=== PATIENT | female | born 1990 | race Caucasian/White ===

== ENCOUNTER 2019-01-29 15:35 | Emergency (ER) | payer OTHER ==
[~2019-01-29] VITALS: Ht 160 cm; Wt 65.9 kg
[2019-01-29 15:41] VITALS: TEMP 98.7
[2019-01-29] MEDS ORDERED: MULTIPLE VITAMI1 TA5 PO (15:43)
[2019-01-29 16:48] LABS: BASO % 0.3 % (0.0-2.0); EOS # 0.1 (0.0-0.7); EOS % 0.6 % (0-4.0); GRAN % 80.9 % (42.2-75.2); HEMOGLOBIN 11.7 g/dl (12.5-16.0); LYMPH # 1.5 (1.2-3.4); LYMPH % 11.9 % (20.0-51.0); MEAN CELL VOLUME 91 fl (80.0-100.0); MEAN CORPUSCULAR HEMOGLOBIN 32 pg (27.0-31.0); MEAN CORPUSCULAR HGB CONC 35 g/dl (33.0-37.0); MONO # 0.6 (0.1-0.6); MONO % 4.8 % (1.7-9.3); PLATELET COUNT 173 K/mm3 (130-400); RED BLOOD COUNT 3.71 M/mm3 (4.10-5.30); REDCELL DISTRIBUTION WIDTH-CV 12.1 % (11.5-14.5)
[2019-01-29 16:50] LABS: HEMATOCRIT 33.6 % (37.0-47.0)
[2019-01-29 16:53] LABS: PROTHROMBIN TIME 11.8 SECONDS (9.7-12.8)
[2019-01-29 17:07] LABS: ALANINE AMINOTRANSFERASE < 6 U/L (9-52); ALBUMIN 3.5 gm/dL (3.5-5.0); ALKALINE PHOSPHATASE 134 U/L (50-136); ANION GAP 9 mmol/L (7-16); AST,SGOT 24 U/L (15-37); BILIRUBIN,TOTAL 0.4 mg/dL (0.0-1.0); BLOOD UREA NITROGEN 6 mg/dL (7-17); C-REACTIVE PROTEIN 0.6 mg/dL (0.0-0.9); CALCIUM 9.3 mg/dL (8.4-10.2); CARBON DIOXIDE 21 mmol/L (22-30); CHLORIDE 107 mmol/L (98-107); CREATININE, serum 0.47 (0.52-1.25); GLUCOSE 110 mg/dL (74-106); POTASSIUM 3.8 mmol/L (3.4-5.0); SODIUM 137 mmol/L (137-145); TOTAL PROTEIN 6.7 gm/dL (6.4-8.2)
[2019-01-29 17:23] LABS: COLLECTION METHOD CLEAN CATCH
[2019-01-29 17:29] LABS: MUCOUS Present /lpf; PH 6 (5-8); SQUAMOUS EPITHELIAL 0-2 /hpf; URINE APPEARANCE Clear; URINE BACTERIA None Seen /hpf; URINE BILIRUBIN Negative (NEGATIVE); URINE BLOOD 2+ (NEGATIVE); URINE COLOR Yellow; URINE GLUCOSE Negative (NEGATIVE); URINE KETONE Negative (NEGATIVE); URINE LEUKOCYTE ESTERASE Negative (NEGATIVE); URINE NITRATE Negative (NEGATIVE); URINE PROTEIN(semi-quant) Negative (NEGATIVE); URINE RBC 20-50 /hpf; URINE UROBILINOGEN Negative (NEGATIVE)
[2019-01-29 17:52] VITALS: BP 109/72; PULSE 93
== END 2019-01-29 17:52 | disposition home or self-care (01) ==
LOC: COL.ER 15:35
PROVIDERS: Emergency Medicine
DX: O99.353 Diseases of the nervous system complicating pregnancy, third trimester (principal); O26.893 Other specified pregnancy related conditions, third trimester; G43.809 Other migraine, not intractable, without status migrainosus; R47.01 Aphasia; Z3A.33 33 weeks gestation of pregnancy

== ENCOUNTER 2019-04-02 07:11 | Inpatient (IN) | payer OTHER ==
[~2019-04-02] VITALS: Ht 157.5 cm; Wt 69.5 kg
[2019-04-02] VITALS (48 sets, daily range): BP systolic 94–139; BP diastolic 47–85; PULSE 65–120; TEMP 98–98.6
[~2019-04-02 07:11] MED LIST: MULTIPLE VITAMI1 TA5 PO
[2019-04-02] MEDS ORDERED: ZANTAC 150MG T150 MG PO (07:29)
--- NOTE | 2019-04-02 07:40 | NUR ---
0725 G1 at 41.6 weeks gestation to LDR5 with for induction of labor for post dates. Plan of care reviewed. Patient denies leaking of fluid or vaginal bleeding and reports good movement. Patient changed into gown and wedged to left side in bed. EFMs explained and applied. FHR 130 bpm with moderate variability. Irregular CTX per toco, patient denies feeling them. VSS. Assessment completed and consents signed. 0740 IV started in left hand with labs drawn from site. Patient and spouse oriented to room and call light.
--- NOTE | 2019-04-02 08:15 | NUR ---
Dr. Phillips to patient room, reviews FHR tracing, SVE with AROM, 2/80/-2 with moderate amount of clear fluid noted.
[2019-04-02 08:37] LABS: BASO % 0.3 % (0.0-2.0); EOS # 0.1 (0.0-0.7); EOS % 1.1 % (0-4.0); GRAN # 5.1 (1.4-6.5); GRAN % 68.8 % (42.2-75.2); HEMOGLOBIN 11.1 g/dl (12.5-16.0); LYMPH # 1.5 (1.2-3.4); LYMPH % 20.1 % (20.0-51.0); MEAN CELL VOLUME 92 fl (80.0-100.0); MEAN CORPUSCULAR HEMOGLOBIN 30 pg (27.0-31.0); MEAN CORPUSCULAR HGB CONC 33 g/dl (33.0-37.0); MEAN PLATELET VOLUME 11.7 fl (7.4-10.4); MONO # 0.7 (0.1-0.6); PLATELET COUNT 175 K/mm3 (130-400); RED BLOOD COUNT 3.65 M/mm3 (4.10-5.30); REDCELL DISTRIBUTION WIDTH-CV 13.2 % (11.5-14.5)
[2019-04-02] MEDS ORDERED: PERCOCET 325 MG1 TA2 PO (08:44)
[2019-04-02] MEDS ORDERED: MOTRIN 800800 MG/TAB PO (08:44)
--- NOTE | 2019-04-02 08:45 | NUR ---
Pitocin started at 2mu per orders and protocol.
[2019-04-02 09:10] LABS: HEMATOCRIT 33.4 % (37.0-47.0)
--- NOTE | 2019-04-02 11:10 | NUR ---
Patient uncomfortable with contractions, tense and breathing through them. Patient request epidural. IVF bolus started. CUSTOMER EXPERIENCE LEADER notified.
--- NOTE | 2019-04-02 11:21 | NUR ---
1115 JOSE CARLOS Hansen to room to place epidural. Patient sits up on the side of the bed for procedure. FHR difficult to monitor in this position and intermittently traces maternal HR as it coorelates with spO2 tracing. 1121 Single shot by JOSE CARLOS Hansen, see anesthesia record for details. 1125 Patient wedged to left side.
--- NOTE | 2019-04-02 12:00 | NUR ---
1137 FHR down to 60 bpm over 2 minutes and then remains at 60 bpm for 5 minutes. 1144 FHR gradually starts to increase to 120 bpm over 2 minutes. Patient turned to high left side, IVF bolus continues, O2 applied at 10L per mask, pitocin turned off. 1138 BP: 96/53, 10 mg of ephedrine given IVP. Repeat BP: 111/63. 1142 Dr. Phillips called and asked to come to the hospital. 1143 SVE with scalp electrode placed. 1144 Patient assisted to knee chest. 1155 Patient assisted to left wedge. Dr. Phillips to room, SVE , plan of care reviewed.
--- NOTE | 2019-04-02 12:30 | NUR ---
Dr. Phillips at bedside, SVE with no change, reviews FHR tracing, orders to start pitocin at 6mu now.
--- NOTE | 2019-04-02 16:00 | NUR ---
1549 FHR down to 70 bpm over 1 minute with a spontaneous return to baseline of 140 bpm. SVE /0, patient turned to right side with peanut ball placed between legs. 1555 FHR down to 70 bpm over 90 seconds with a spontaneous return to baseline of [address] Phillips called and updated.
--- NOTE | 2019-04-02 16:50 | NUR ---
SVE /+1, recurrent late FHR decelerations continue, Dr. Phillips called and updated on SVE and late decelerations. Will come to the hospital to evaluate.
--- NOTE | 2019-04-02 17:59 | NUR ---
1725 Dr. Phillips at bedside. Reviews FHR tracing. SVE 2. 1730 Patient begins to push with contractions. Dr. Phillips remains at bedside. FHR down to 60 bpm after pushing. Patient prepped for delivery. Scalp electrode falls off. EFM applied and intermittently tracing. Patient continues to push with contractions with Dr. Phillips. 1737 vacuum applied, patient pushing with contractions, 1st pop off at 1740. Vacuum reapplied and 2nd pop off at 1743. Patient continues to push with contractions without vacuum. 1753 Vacuum reapplied, patient pushes with contractions, 3rd pop off at 1754. Patient continues to push without vacuum. 1759 Spontaneous vaginal delivery of viable female infant by Dr. Phillips. Cord clamped and cut and infant to the care of the nursery RN. 1804 Spontaneous delivery of placenta. Pitocin infusing at 333ml/hr per orders and protocol. Fundus firm, lochia WNL. Repair of mediolateral 2nd degree laceration by Dr. Phillips.
[2019-04-03 04:25] VITALS: BP 98/58; PULSE 84; TEMP 98.4
--- NOTE | 2019-04-03 06:33 | NUR ---
REPORT RECEIVED FROM OFF GOING RN. CARE ASSUMED BY THIS RN.
[2019-04-03 06:43] VITALS: BP 100/65; PULSE 91; TEMP 98
--- NOTE | 2019-04-03 10:47 | NUR ---
Initial visit; Mom thanked Intrusion Analyst for offering congratulations and God's blessings for the of their daughter. Intrusion Analyst thanked family for choosing [facility].
[2019-04-03 11:40] VITALS: BP 105/58; PULSE 81; TEMP 98.1
[2019-04-03 16:42] VITALS: BP 103/55; PULSE 86; TEMP 97.2
[2019-04-03 20:27] VITALS: BP 104/61; PULSE 88; TEMP 98.5
[2019-04-04] MEDS ORDERED: NEWMANS TOP (09:48)
[2019-04-04 10:30] VITALS: BP 116/63; PULSE 76; TEMP 97.8
== END 2019-04-04 12:40 | disposition home or self-care (01) | DRG 807 ==
LOC: OB 07:11 → LDR 07:11 → OB 20:30
PROVIDERS: ADMIT Obstetrics & Gynecology
PROC: 10D07Z6 Extraction of Products of Conception, Vacuum, Via Natural or Artificial Opening (ICD-10-PCS; principal; 2019-04-02)
PROC: 10907ZC Drainage of Amniotic Fluid, Therapeutic from Products of Conception, Via Natural or Artificial Opening (ICD-10-PCS; 2019-04-02)
PROC: 3E033VJ Introduction of Other Hormone into Peripheral Vein, Percutaneous Approach (ICD-10-PCS; 2019-04-02)
PROC: 0W8NXZZ Division of Female Perineum, External Approach (ICD-10-PCS; 2019-04-02)
DX: O48.0 Post-term pregnancy (principal); Z37.0 Single live birth; Z3A.41 41 weeks gestation of pregnancy
CPT/HCPCS: J1200; J2405; J2590; J2791; J2795; J7120

== ENCOUNTER → 2021-06-16 | Outpatient (CLI) | payer OTHER ==
[~2021-06-16] MED LIST changes: +MOTRIN 800800 MG/TAB PO; +NEWMANS TOP; +PERCOCET 325 MG1 TA2 PO; +ZANTAC 150MG T150 MG PO
== END ==
LOC: ZCOL.LAB 08:00
DX: Z20.822 Contact with and (suspected) exposure to COVID-19 (principal)

== ENCOUNTER 2021-06-21 09:00 | Inpatient (IN) | payer OTHER ==
[2021-06-21] VITALS (34 sets, daily range): BP systolic 100–140; BP diastolic 50–72; PULSE 71–157; TEMP 98.2–98.5
[~2021-06-21] VITALS: Ht 157.5 cm; Wt 70.0 kg
--- NOTE | 2021-06-21 09:10 | NUR ---
Patient ambulates to LR4 with spouse, changed into gown, FHR/TOCO monitors placed. Patient states having contractions. Denies any leaking of fluid, vaginal bleeding, decreased movement. Plan of care discussed. SVE-3/90/-2 and intact. 0925: Dr. Phillips called and orders to admit patient received. 30: IV started in left hand, blood obtained and to lab, LR infusing. Assessment completed, consents signed, packet given. 1030: Dr. Phillips at bedside assessing patient and FHR strip. 1034: SVE-3/90/-2 and AROM of clear fluid at this time. Plan of care discussed. Dr. Phillips orders to start pitocin at 1130 if patient not hurting. 1127: Pitocin augmentation discussed and patient agrees. Started pitocin at 2mU/hr per protocol.
[2021-06-21 10:21] LABS: BASO % 0.3 % (0.0-2.0); EOS # 0.1 (0.0-0.7); EOS % 0.9 % (0-4.0); GRAN # 7.8 (1.4-6.5); GRAN % 77.5 % (42.2-75.2); HEMOGLOBIN 11.4 g/dl (12.5-16.0); LYMPH # 1.5 (1.2-3.4); LYMPH % 14.5 % (20.0-51.0); MEAN CELL VOLUME 87 fl (80.0-100.0); MEAN CORPUSCULAR HEMOGLOBIN 29 pg (27.0-31.0); MEAN CORPUSCULAR HGB CONC 34 g/dl (33.0-37.0); MEAN PLATELET VOLUME 11.3 fl (7.4-10.4); MONO # 0.6 (0.1-0.6); MONO % 5.6 % (1.7-9.3); PLATELET COUNT 132 K/mm3 (130-400); RED BLOOD COUNT 3.88 M/mm3 (4.10-5.30); REDCELL DISTRIBUTION WIDTH-CV 13.7 % (11.5-14.5)
[2021-06-21 10:24] LABS: HEMATOCRIT 33.9 % (37.0-47.0)
--- NOTE | 2021-06-21 12:50 | NUR ---
Patient standing and difficulty tracing FHR, monitor adjusted. Patient requesting epidural and T. [place] COMMISSARY CLERK notified. 1310: Patient sitting on edge of bed for placement of epdiural. T. [place] COMMISSARY CLERK at bedside and difficulty tracing FHR due to maternal position. 1323: Test dose done and patient tolerates well. 1330: Patient repositioned and safety instruction/plan of care discussed.
--- NOTE | 2021-06-21 14:10 | NUR ---
FHR tracing recurrent late decelerations. Maternal blood pressure treneding down. LR bolus continues. 1411: Blood pressure: 83/48 1413: Blood pressure: 80/40 1414: Ephedrine 10mg given IV at this time. 1418: Blood pressure: 107/58 Will continue to monitor patient and blood pressures. 1430: Hdez catheter placed and patient tolerates well. 1432: SVE 5-6/90/-2 and patient left lateral with peanut ball.
--- NOTE | 2021-06-21 15:20 | NUR ---
Patient turned right laterl. FHR baseline 135bpm. 1520: FHR decreasing to 70-90bmp for approx. 6 minutes. Patient was turned left lateral, LR bolus started, pitocin off, right lateral, Oxygen on via mask at 10ml/hr. SVE- 9/100/[address] Phillips called and updated. 1525: Patient asssited to knees chest position and FHR gradually increasing back to baseline. Hdez catheter removed and patient tolerates well. 1535: Dr. Phillips at bedside and assessing patient and FHR strip. 1540: SVE-complete and patient begins to push with each contraction. Dr. Phillips orders to start pitocin at 8mu/hr at this time. 1610: Patient continues to push with each contraction. Dr. Phillips at bedside.
--- NOTE | 2021-06-21 16:45 | NUR ---
Patient continues to push with contractions and patient prepped for vaginal delivery. 1648: Spontaneous vaginal delivery of viable male-head followed by body. to patients abdomen and bulb syringed. Adeel ESPINOZA assumes care of . Cord clamped and cut by physician and cord blood obtained. 1652: Spontaneous delivery of placenta and pitocin bolus started at 333 mU/hr per protocol. Fundal massage done/firm/bleeding WNL. Dr. Phillips begins to repair laceration. Perineum swollen. Fundal massage done/firm/bleeding WNL. Patient repositioned and ice pack to perineum. Plan of care discussed.
[2021-06-21] MEDS ORDERED: PERCOCET 325 MG1 TA2 PO (17:11)
[2021-06-21] MEDS ORDERED: MOTRIN 800800 MG/TAB PO (17:11)
--- NOTE | 2021-06-21 19:10 | NUR ---
Up to bathroom with careful steady gait. Voids good amount, performs own pericare. Ambulates to [facility] for baby's bath.
[2021-06-22 04:00] VITALS: BP 100/68; PULSE 56; TEMP 98.9
[2021-06-22 09:00] VITALS: BP 111/74; PULSE 84; TEMP 97.6
--- NOTE | 2021-06-22 09:56 | NUR ---
Initial visit; Parents thanked Curb Setter Helper for offering congratulations and God's blessings for the of their son. Curb Setter Helper thanked family for choosing [facility].
--- NOTE | 2021-06-22 18:55 | NUR ---
PT DC INSTRUCTIONS GIVEN. PT WITH NO QUESTIONS AT THIS TIME.
== END 2021-06-22 18:25 | disposition home or self-care (01) | DRG 807 ==
LOC: LDRO 09:00 → OB 09:28 → LDR 09:28 → OB 19:15
PROVIDERS: ADMIT Obstetrics & Gynecology
PROC: 10E0XZZ Delivery of Products of Conception, External Approach (ICD-10-PCS; principal; 2021-06-21)
PROC: 0KQM0ZZ Repair Perineum Muscle, Open Approach (ICD-10-PCS; 2021-06-21)
PROC: 10907ZC Drainage of Amniotic Fluid, Therapeutic from Products of Conception, Via Natural or Artificial Opening (ICD-10-PCS; 2021-06-21)
DX: O99.02 Anemia complicating childbirth (principal); Z37.0 Single live birth; D64.9 Anemia, unspecified; O26.893 Other specified pregnancy related conditions, third trimester; O70.1 Second degree perineal laceration during delivery; Z3A.40 40 weeks gestation of pregnancy
CPT/HCPCS: J2590; J2791; J7120